=== PATIENT | female | born 1995 | race American Indian/Alaskan Native ===

== ENCOUNTER 2020-08-29 17:38 | Emergency (ER) | payer BC ==
[2020-08-29 17:43] VITALS: BP 129/77
--- NOTE | 2020-08-29 18:37 | Emergency Department Report ---
Chief Complaint: Extremity Injury, Lower Stated Complaint: LT ANKLE/RT WRIST PAIN Time Seen by Provider: 08/29/20 18:32 - HPI History of Present Illness: Patient is a 25-year-old female presents emergency room with complaints of left ankle pain that began last night when she got off work. 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 She denies any fall or injury. She denies any prior injury. She denies any numbness or weakness. She is currently ambulatory. She states that she also noticed a lump to her right wrist that began 2 days ago. She denies any pain in the wrist. She denies any fall or injury of the wrist. She denies any numbness or weakness. No past medical history. No allergies to medications. Last menstrual cycle 3 weeks ago. Vitals are normal On exam: Non toxic appearing, no acute distress atraumatic, normocephalic normal appearance of the eyes, EOMI, no periorbital edema or ecchymosis moist mucus membranes no respiratory distress, no accessory muscle use No bony tenderness palpation to the left ankle, foot, toes, full range of motion of the left ankle, foot, toes, with mild discomfort upon flexion and extension of the ankle, no erythema, no increased warmth, no skin changes, small 1 cm nodule present to the dorsal surface of the right wrist, no tenderness palpation, no induration, no erythema, no increased warmth, full range of motion of the right wrist, hand, digits, no snuffbox tenderness to palpation, neurovascularly intact throughout A&O x4, no focal neuro deficit skin is warm, dry, intact Patient has had no traumatic injury Ankle pain likely related to patient's job as a server security administrator where she is on her feet all day Discussed with patient to use orthopedic inserts Discussed supportive care and symptomatic treatment with patient Patient's nodule on her wrist appears consistent with ganglion cyst Patient has no signs of septic joint, gout, DVT, she has had no trauma Advised patient May alternate Tylenol or ibuprofen as needed for discomfort. May use ice for 15 minutes at a time, rest, elevation, soak in Epson salt. May wear an Olaf wrap over the counter on the left ankle but do not wear too tightly and do not sleep in it. Follow-up with orthopedic doctor. Follow-up with a primary care doctor. Return to emergency room for any new or worsening symptoms. Patient referred to primary care doctor and orthopedic Discussed strict return precautions Medical screen examination performed and there is no threat to life or limb at this time - Exam Vital Signs: Vital Signs 08/29/20 17:41 Temperature 98.9 F Pulse Rate 87 Respiratory 16 Rate Blood Pressure 129/77 O2 Sat by Pulse 99 Oximetry MSE screening note: Focused history and physical exam performed. Due to findings the following was ordered: ED Disposition for MSE Clinical Impression: Ganglion cyst of dorsum of right wrist Left ankle pain Qualifiers: Chronicity: acute Qualified Code(s): M25.572 - Pain in left ankle and joints of left foot Disposition: Z-07 MED SCREENING EXAM-LEFT Is pt being admited?: No Does the pt Need Aspirin: No Condition: Stable Instructions: Ganglion Cysts (ED), Arthralgia (ED) Additional Instructions: May alternate Tylenol or ibuprofen as needed for discomfort. May use ice for 15 minutes at a time, rest, elevation, soak in Epson salt. May wear an Olaf wrap over the counter on the left ankle but do not wear too tightly and do not sleep in it. Follow-up with orthopedic doctor. Follow-up with a primary care doctor. Return to emergency room for any new or worsening symptoms. Referrals: MEREDITH MCDUFFIE MD [Staff Physician] - 2-3 Days [facility] [Provider Group] - 2-3 Days UHMBERTO DEMARCO MD [Staff Physician] - 2-3 Days [facility] [Provider Group] - 2-3 Days Forms: Work/School Release Form(ED) Time of Disposition: 18:35 Print Language: SYRIAC
== END 2020-08-29 19:01 | disposition left against medical advice (07) ==
LOC: ED 17:38
DX: M25.572 Pain in left ankle and joints of left foot (principal); Z53.21 Procedure and treatment not carried out due to patient leaving prior to being seen by health care provider